=== PATIENT | male | born 1975 | race Caucasian/White ===

== ENCOUNTER 2018-06-03 10:07 | Day surgery (SDC) | payer BC ==
[~2018-06-03] VITALS: Ht 188 cm; Wt 105.0 kg
[2018-06-03 11:06] VITALS: Ht 188 cm; Wt 105.0 kg
[2018-06-03] MEDS ORDERED: nexium (11:21)
[2018-06-03] MEDS ORDERED: ANTI HYPERTENSIVE (11:22)
[2018-06-03 11:46] VITALS: BP 120/68; PULSE 58; RESP 18
--- NOTE | 2018-06-03 11:59 | PREAC ---
Date/Time of Note Date/Time of Note DATE: 06/03/18 TIME: 11:57 Anesthesia Eval and Record Evaluation Time Pre-Procedure Interview DATE: 06/03/18 TIME: 11:57 Age 42 Sex male NPO: 8 hrs Preoperative diagnosis esophageal varices Planned procedure egd Past Medical History Past Medical History: Includes Hepatic: Cirrhosis GI: GERD Surgery & Anesthesia Issues No known issue Meds Anticoagulation: No Beta Gagan within 24 hr: Yes Reason Beta Gagan not given: Other (na) Reported Medications [anti hypertensive] No Conflict Check 06/03/18 [nexium] No Conflict Check 06/03/18 Meds reviewed: Yes Allergies Coded Allergies: No Known Allergy (Unverified , 06/03/18) Allergies Reviewed: Yes Labs/Studies Labs Reviewed: Reviewed by anesthesiologist test: N/A Pre-procedure Exam Last vitals Vital Signs Date Temp Pulse Resp B/P (MAP) Pulse Ox O2 O2 Flow FiO2 Time Delivery Rate 06/03/18 98.4 58 18 120/68 99 Room Air 11:46 (85) Airway: Adequate mouth opening, Adequate thyromental dist Mallampati: Mallampati III Teeth: Normal Lung: Normal Heart: Normal ASA Physical Status ASA physical status: 3 Emergency: None Pre-operative Attestations Prior to commencing anesthesia and surgery, the patient was re-evaluated, there was verification of: *The patient's identity *The results of appropriate recent lab work and preoperative vital signs *The above evaluation not changing prior to induction *Anesthetic plan, risk benefits, alternative and complications discussed with patient/family; questions answered; patient/family understands, accepts and wishes to proceed. MARLEE MARTINEZ DO Jun 03, 2018 11:59
[2018-06-03] MEDS ORDERED: CIPROFLOXACIN 400MG/D5W 200 ML ONE (12:00)
[2018-06-03] MEDS ORDERED: LIDOCAINE 2% (SDV) 5 ML INJ ONE (12:01)
[2018-06-03] MEDS ORDERED: PROPOFOL 20 ML ONE (12:01)
[2018-06-03] MEDS ORDERED: MIDAZOLAM 1 MG/ML 2 ML INJ ONE (12:02)
--- NOTE | 2018-06-03 12:36 | PAC ---
Date/Time of Note Date/Time of Note DATE: 06/03/18 TIME: 12:35 Post-Anesthesia Notes Post-Anesthesia Note Last documented vital signs Vital Signs Date Temp Pulse Resp B/P (MAP) Pulse Ox O2 O2 Flow FiO2 Time Delivery Rate 06/03/18 98.4 62 18 111/62 99 Room Air 1235 Activity: WNL Respiratory function: WNL Cardiovascular function: WNL Mental status: Baseline Pain reasonably controlled: Yes Hydration appropriate: Yes Nausea/Vomiting absent: Yes MARLEE MARTINEZ DO Jun 03, 2018 12:36
[2018-06-03 12:43] VITALS: BP 123/85; PULSE 65; RESP 18
== END 2018-06-03 13:44 | disposition home or self-care (01) ==
LOC: GIL 10:07
PROVIDERS: ATTEND Internal Medicine Gastroenterology
DX: I85.11 Secondary esophageal varices with bleeding (principal); K31.89 Other diseases of stomach and duodenum; K25.3 Acute gastric ulcer without hemorrhage or perforation
CPT/HCPCS: 43244; J0744; J2250

== ENCOUNTER 2018-12-15 06:03 | Day surgery (SDC) | payer BC ==
[~2018-12-15] VITALS: Ht 190.5 cm; Wt 104.4 kg
[~2018-12-15 06:03] MED LIST: ANTI HYPERTENSIVE; nexium
[2018-12-15 06:46] VITALS: Ht 190.5 cm; Wt 104.4 kg
[2018-12-15 07:01] VITALS: BP 100/63; PULSE 64; RESP 16
[2018-12-15] MEDS ORDERED: PROPRANOLOL (07:27)
[2018-12-15] MEDS ORDERED: JANUMET (07:27)
[2018-12-15] MEDS ORDERED: PROTONIX (07:27)
--- NOTE | 2018-12-15 07:29 | PREAC ---
Date/Time of Note Date/Time of Note DATE: 12/15/18 TIME: 07:28 Anesthesia Eval and Record Evaluation Time Pre-Procedure Interview DATE: 12/15/18 TIME: 07:28 Age 43 Sex male NPO: 8 hrs Preoperative diagnosis varices Planned procedure egd, colonoscopy Past Medical History Past Medical History: Includes Cardio: HTN (portal HTN), Dyslipidemia, Arrythmia Endo: Diabetes Pulm: Smoking Hx Hepatic: Cirrhosis GI: GERD Heme: Anemia Surgery & Anesthesia Issues No known issue Meds Anticoagulation: No Beta Gagan within 24 hr: No Reason Beta Gagan not given: Pt. not on B-Gagan Reported Medications [Protonix] No Conflict Check 12/15/18 [Propranolol] No Conflict Check 12/15/18 [Janumet] No Conflict Check 12/15/18 Discontinued Reported Medications [anti hypertensive] No Conflict Check 06/03/18 [nexium] No Conflict Check 06/03/18 Meds reviewed: Yes Allergies Coded Allergies: No Known Allergy (Unverified , 06/03/18) Allergies Reviewed: Yes Labs/Studies Labs Reviewed: Reviewed by anesthesiologist test: N/A Studies: ECG Pre-procedure Exam Airway: Adequate mouth opening, Adequate thyromental dist Mallampati: Mallampati II Teeth: Normal Lung: Normal Heart: Normal ASA Physical Status ASA physical status: 3 Emergency: None Planned Anesthetic General/MAC: Mask, MAC Pre-operative Attestations Prior to commencing anesthesia and surgery, the patient was re-evaluated, there was verification of: *The patient's identity *The results of appropriate recent lab work and preoperative vital signs *The above evaluation not changing prior to induction *Anesthetic plan, risk benefits, alternative and complications discussed with patient/family; questions answered; patient/family understands, accepts and wishes to proceed. SAQIB SHAIKH Dec 15, 2018 07:29
[2018-12-15] MEDS ORDERED: FENTAnyl 50 MCG/ML VIAL IV PRN ×2 (07:30)
[2018-12-15] MEDS ORDERED: PROPOFOL 20 ML ONE (07:38)
[2018-12-15] MEDS ORDERED: CIPROFLOXACIN 400MG/D5W 200 ML ONE (08:07)
[2018-12-15 09:20] VITALS: BP 107/7
--- NOTE | 2018-12-16 08:16 | PAC ---
Date/Time of Note Date/Time of Note DATE: 12/16/18 TIME: 08:16 Post-Anesthesia Notes Post-Anesthesia Note Last documented vital signs Vital Signs Date Temp Pulse Resp B/P (MAP) Pulse Ox O2 O2 Flow FiO2 Time Delivery Rate 12/15/18 107/7 (40) Room Air 09:20 12/15/18 98.2 64 16 98 07:01 Activity: WNL Respiratory function: WNL Cardiovascular function: WNL Mental status: Baseline Pain reasonably controlled: Yes Hydration appropriate: Yes Nausea/Vomiting absent: Yes SAQIB SHAIKH Dec 16, 2018 08:16
== END 2018-12-15 13:02 | disposition home or self-care (01) ==
LOC: GIL 06:03 → SDS 06:03 → GIL 13:02
PROVIDERS: ATTEND Internal Medicine Gastroenterology
DX: Z12.11 Encounter for screening for malignant neoplasm of colon (principal); D12.4 Benign neoplasm of descending colon; D12.2 Benign neoplasm of ascending colon; I85.00 Esophageal varices without bleeding; K31.89 Other diseases of stomach and duodenum; E11.9 Type 2 diabetes mellitus without complications; I10 Essential (primary) hypertension; F17.200 Nicotine dependence, unspecified, uncomplicated; E78.5 Hyperlipidemia, unspecified
CPT/HCPCS: 43244; 45380; 82962; 88305; J0744